=== PATIENT | female | born 1955 | race Hispanic/Latino ===

== ENCOUNTER → 2019-10-10 | Day surgery (SDC) | payer MEDICARE, OTHER ==
--- NOTE | 2019-10-05 15:18 | Diagnostic Imaging Report ---
EXAMINATION: CHEST 2 VIEWS INDICATION: Pre-operative COMPARISON: None FINDINGS: LINES/TUBES:None LUNGS:The lungs are well-inflated. No focal consolidation or pulmonary edema. PLEURA:No pleural effusion or pneumothorax. MEDIASTINUM:The cardiomediastinal silhouette appears normal in size and shape. BONES/SOFT TISSUES:No acute osseous injury. ABDOMEN:No free air under the diaphragm. IMPRESSION: No focal pneumonia or pulmonary edema. Signed by: Luz Gaona MD on 10/05/2019 3:14 PM
[2019-10-05 15:34] LABS: BASOPHILS % 0.3 % (0.0-1.0); EOSINOPHILS # (AUTO) 0.2 (0.0-0.4); EOSINOPHILS % 2.3 % (0.0-6.0); HEMATOCRIT 45.7 % (34.2-44.1); HEMOGLOBIN 14.1 g/dL (12.0-16.0); LYMPHOCYTES # (AUTO) 2.6 (1.0-3.2); LYMPHOCYTES % 27.4 % (18.0-39.1); MEAN CORPUSCULAR HEMOGLOBIN 26.5 pg (28-32); MEAN CORPUSCULAR HGB CONC 30.9 g/dL (31-35); MEAN CORPUSCULAR VOLUME 85.9 fL (81-99); MONOCYTES # (AUTO) 0.7 (0.2-0.8); MONOCYTES % 7.3 % (4.4-11.3); NEUTROPHILS # (AUTO) 5.9 (2.1-6.9); NEUTROPHILS % 62.4 % (38.7-80.0); PLATELET COUNT 325 x10e3/uL (140-360); RED BLOOD COUNT 5.32 x10e6/uL (3.6-5.1); RED CELL DISTRIBUTION WIDTH 13.5 % (11.7-14.4)
[~2019-10-10] MED LIST: BUPIVACAINE 0.25% 30ML SDV INJ ONE; ESTROGENS CONJUGATED VAGINAL CR 45 GM TUBE PV ONE; ETOMIDATE 2 MG/ML 10 ML INJ IV ONE; FENTANYL CITRATE/PF 100MCG/2 ML INJ ONE; FOLIC ACID0.8 M1 PO; GLYCOPYRROLATE INJ 0.2 MG/ML VIAL ONE; KETOROLAC TROMETHAMINE 30 MG/ML VIAL ONE; LIDOCAINE HCL 2% LOCAL INJ 5 ML SDV VIAL INJ ONE; LOVASTATIN10 MG PO; MIDAZOLAM HCL 2 MG/2 ML VIAL ONE; NEOSTIGMINE 1 MG/ML 10ML VIAL ONE; ONDANSETRON HCL INJ 2MG/ML 2ML 2 MG/ML VIAL ONE; PANTOPRAZOLE SO40 MG PO; PROPOFOL IV EMULSION 10 MG/ML 20 ML VIAL ONE; ROCURONIUM BROMIDE 10 MG/ML 5ML VIAL IV ONE; SEVOFLURANE INHAL SOLN 250 ML PEN BTL ONE; VIT D PO
[2019-10-10 12:53] VITALS: BP 133/73
--- NOTE | 2019-10-10 16:15 | Operative Report ---
DATE OF PROCEDURE: SURGEON: Tessa Young MD PREOPERATIVE DIAGNOSIS: Rectocele. POSTOPERATIVE DIAGNOSIS: Rectocele. PROCEDURE: Rectocele repair. COMPLICATIONS: None. ESTIMATED BLOOD LOSS: Minimal. DESCRIPTION OF PROCEDURE: The patient was taken to the OR. General anesthesia was induced. She was prepped and draped in a normal sterile fashion, placed in dorsal lithotomy position. After examination under anesthesia, two Allis clamps were applied at the mucocutaneous junction about 1 cm from the fourchette on both sides and then the skin between the two Allis clamp was excised using curved Carson scissors. The posterior wall of the vagina was dissected off the perineum and the rectum using Metzenbaum scissors using the push spread technique and opened in the midline using the same instrument. Two flaps of the vagina dissected off the underlying muscles and rectum using both sharp and blunt dissection and gentle sweeps of Ray-Campbell wrapped on the index finger. Following this, the levator ani on each side were approximated using Vicryl 2-0, two sutures were used. Excess vaginal skin was trimmed off using curved Carson scissors and the vagina was approximated using Vicryl 2-0 interlocking sutures. Perineal skin was approximated using subcu Vicryl 2-0 after bringing the perineal muscles together with Vicryl 0 suture. The patient tolerated the procedure well. Laps, sponge and needle counts were correct x2 at the end of the procedure. Tessa Young MD DD/MODL /[id number]
== END | disposition home or self-care (01) ==
LOC: OR 07:38
PROVIDERS: ATTEND Obstetrics & Gynecology
DX: N81.6 Rectocele (principal); R32 Unspecified urinary incontinence; E78.5 Hyperlipidemia, unspecified; Z01.810 Encounter for preprocedural cardiovascular examination; Z01.812 Encounter for preprocedural laboratory examination; Z01.818 Encounter for other preprocedural examination; Z11.59 Encounter for screening for other viral diseases
CPT/HCPCS: 36415; 57250; 71046; 85025; 86850; 86900; 87635; 93005; C1758; J1885; J2001; J2250; J2405; J2704; J2710; J3010

== ENCOUNTER → 2021-01-09 | Outpatient (CLI) | payer MEDICARE ==
[~2021-01-09] MED LIST changes: -BUPIVACAINE 0.25% 30ML SDV INJ ONE; -ESTROGENS CONJUGATED VAGINAL CR 45 GM TUBE PV ONE; -ETOMIDATE 2 MG/ML 10 ML INJ IV ONE; -FENTANYL CITRATE/PF 100MCG/2 ML INJ ONE; -GLYCOPYRROLATE INJ 0.2 MG/ML VIAL ONE; -KETOROLAC TROMETHAMINE 30 MG/ML VIAL ONE; -LIDOCAINE HCL 2% LOCAL INJ 5 ML SDV VIAL INJ ONE; -MIDAZOLAM HCL 2 MG/2 ML VIAL ONE; -NEOSTIGMINE 1 MG/ML 10ML VIAL ONE; -ONDANSETRON HCL INJ 2MG/ML 2ML 2 MG/ML VIAL ONE; -PROPOFOL IV EMULSION 10 MG/ML 20 ML VIAL ONE; +REGADENOSON 0.4 MG/5 ML SYR IV ONE; -ROCURONIUM BROMIDE 10 MG/ML 5ML VIAL IV ONE; -SEVOFLURANE INHAL SOLN 250 ML PEN BTL ONE
== END ==
LOC: NM 08:50
PROVIDERS: ATTEND Internal Medicine Cardiovascular Disease
DX: R07.9 Chest pain, unspecified (principal); R06.02 Shortness of breath
CPT/HCPCS: 78452; 93017; 93306; A9502; J2785